=== PATIENT | male | born 1955 | race Caucasian/White ===

== ENCOUNTER 2022-06-03 13:23 | Emergency (ER) | payer OTHER, MEDICARE ==
[~2022-06-03] VITALS: Ht 170.2 cm; Wt 93.2 kg
[2022-06-03 13:35] VITALS: BP 138/84
[2022-06-03 14:00] VITALS: BP 126/78
[2022-06-03 14:02] LABS: HEMATOCRIT 42.9 % (39.0-50.0); HEMOGLOBIN 14.4 g/dl (14.0-18.0); IMMATURE GRANULOCYTES 0.9 % (0.0-5.0); MEAN CELL VOLUME 89.9 fL CALC (80.0-100.0); MEAN CORPUSCULAR HGB 30.2 pG CALC (26.0-32.0); MEAN CORPUSCULAR HGB CONC 33.6 g/dL CAL (32.0-36.0); NEUT# 10.86 thou/uL (1.82-7.42); RED BLOOD COUNT 4.77 mill/uL (4.70-6.10); RED CELL DISTRI WIDTH 15.7 % (11.5-15.5)
[2022-06-03] MEDS ORDERED: WELLBUTRIN100 M2 PO (14:07)
[2022-06-03] MEDS ORDERED: LIPITOR80 M1 PO (14:07)
[2022-06-03] MEDS ORDERED: METOPROL TAR25 MG PO (14:08)
[2022-06-03] MEDS ORDERED: ASPIRIN81 MG PO (14:08)
[2022-06-03] MEDS ORDERED: PERCOCET 10/31 COMBO PO (14:09)
[2022-06-03] MEDS ORDERED: DIAZEPAM5 MG PO (14:09)
[2022-06-03 14:12] LABS: ALBUMIN 3.9 g/dL (3.2-5.0); ALKALINE PHOSPHATASE 89 u/l (38-126); AMYLASE 77 u/l (30-110); ANION GAP 13 (6-22 (CALC)); BILIRUBIN, TOTAL 0.7 mg/dL (0.0-1.4); BUN 11 mg/dL (8-23); BUN/CREATININE RATIO 9 (12-20 (CALC)); CARBON DIOXIDE 24 mmol/l (22-30); CHLORIDE 109 mmol/l (95-108); CREATININE 1.2 mg/dL (0.7-1.3); GFR FOR AFR.AMER. > 60 ML/MIN (>=60 (CALC)); GFR OTHER RACES 60 ML/MIN (>=60 (CALC)); LIPASE 63 u/l (23-300); POTASSIUM 4.2 mmol/l (3.5-5.1); SODIUM 142 mmol/l (137-146); TOTAL PROTEIN 7.1 g/dL (6.3-8.2)
[2022-06-03 14:24] LABS: SGOT/AST 98 u/l (19-48)
[2022-06-03 14:31] VITALS: BP 106/59
[2022-06-03 14:46] LABS: ACT PARTIAL THROMBO TIME 25.8 SECONDS (20.0-32.5); PROTHROMBIN TIME 10.3 SECONDS (9.0-12.5)
[2022-06-03 14:48] VITALS: BP 130/77
[2022-06-03 15:00] VITALS: BP 127/79
[2022-06-03 15:42] VITALS: BP 127/79
== END 2022-06-03 15:41 | disposition short-term general hospital (02) | DRG 282 ==
LOC: ED 13:23
PROVIDERS: Emergency Medicine
DX: I21.4 Non-ST elevation (NSTEMI) myocardial infarction (principal); I10 Essential (primary) hypertension; Z95.5 Presence of coronary angioplasty implant and graft
CPT/HCPCS: J1644

== ENCOUNTER 2023-02-11 07:21 | Day surgery (SDC) | payer OTHER, MEDICARE ==
[~2023-02-11] VITALS: Ht 170.2 cm; Wt 95.3 kg
[~2023-02-11 07:21] MED LIST: ASPIRIN81 MG PO; CRESTOR40 MG PO; DIAZEPAM5 MG PO; LIPITOR80 M1 PO; METOPROL TAR25 MG PO; MULTI VITAMIN MENS PO; OMEPRAZOLE20 MG PO; PERCOCET 10/31 COMBO PO; PERCOCET 5/325M1 TAB PO; SAW PALMETTO1 CAP PO; WELLBUTRIN XL300 MG PO; WELLBUTRIN100 M2 PO
[2023-02-11 10:13] VITALS: BP 139/76
== END 2023-02-11 10:25 | disposition home or self-care (01) | DRG 395 ==
LOC: ENDO 07:21 → ORM 09:30 → ENDO 09:30
PROVIDERS: ATTEND Surgery
PROC: 0DBH8ZX Excision of Cecum, Via Natural or Artificial Opening Endoscopic, Diagnostic (ICD-10-PCS; principal; 2023-02-11)
PROC: 0DBL8ZX Excision of Transverse Colon, Via Natural or Artificial Opening Endoscopic, Diagnostic (ICD-10-PCS; 2023-02-11)
PROC: 0DBN8ZX Excision of Sigmoid Colon, Via Natural or Artificial Opening Endoscopic, Diagnostic (ICD-10-PCS; 2023-02-11)
DX: D12.0 Benign neoplasm of cecum (principal); D12.3 Benign neoplasm of transverse colon; D12.5 Benign neoplasm of sigmoid colon; K64.8 Other hemorrhoids

== ENCOUNTER 2023-06-14 11:54 | Emergency (ER) | payer OTHER, MEDICARE ==
[~2023-06-14] VITALS: Ht 170.2 cm; Wt 97.7 kg
[2023-06-14] VITALS (14 sets, daily range): BP systolic 107–155; BP diastolic 67–103
[2023-06-14 13:22] LABS: BASO% 0.4 % (0-3); EOS% 1.5 % (0-8); HEMATOCRIT 40.8 % (39.0-50.0); HEMOGLOBIN 13.4 g/dl (14.0-18.0); IMMATURE GRANULOCYTES 0.5 % (0.0-5.0); LYMPH% 30.9 % (15-41); MEAN CORPUSCULAR HGB 28.6 pG CALC (26.0-32.0); MEAN CORPUSCULAR HGB CONC 32.8 g/dL CAL (32.0-36.0); MONO% 8.4 % (2-13); NEUT# 4.59 thou/uL (1.82-7.42); NEUT% 58.3 % (42-76); RED BLOOD COUNT 4.69 mill/uL (4.70-6.10); RED CELL DISTRI WIDTH 13.9 % (11.5-15.5)
[2023-06-14 13:45] LABS: ACT PARTIAL THROMBO TIME 27.4 SECONDS (20.0-32.5); PROTHROMBIN TIME 9.8 SECONDS (9.0-12.5)
[2023-06-14 13:57] LABS: ALBUMIN 4.1 g/dL (3.2-5.0); ALKALINE PHOSPHATASE 84 u/l (38-126); ANION GAP 15 (6-22 (CALC)); BILIRUBIN, TOTAL 0.6 mg/dL (0.2-1.3); BUN 17 mg/dL (8-23); BUN/CREATININE RATIO 14 (12-20 (CALC)); CARBON DIOXIDE 21 mmol/l (22-30); CHLORIDE 108 mmol/l (95-108); CREATININE 1.2 mg/dL (0.7-1.3); GFR FOR AFR.AMER. > 60 ML/MIN (>=60 (CALC)); GFR OTHER RACES 60 ML/MIN (>=60 (CALC)); POTASSIUM 4.1 mmol/l (3.5-5.1); SGOT/AST 33 u/l (19-48); SODIUM 139 mmol/l (137-146); TOTAL PROTEIN 7.3 g/dL (6.3-8.2)
[2023-06-14 13:58] LABS: D-DIMER 0.92 mg/L (0.19-0.60)
[2023-06-14] MEDS ORDERED: AMLODIPINE BESY10 MG PO (15:02)
== END 2023-06-14 17:16 | disposition home or self-care (01) | DRG 310 ==
LOC: ED 11:54
PROVIDERS: Emergency Medicine
DX: R00.0 Tachycardia, unspecified (principal)
CPT/HCPCS: Q9967